=== PATIENT | male | born 1965 | race Caucasian/White ===

== ENCOUNTER 2019-02-20 13:13 | Emergency (ER) | payer BC, MEDICAID ==
--- NOTE | 2019-02-20 13:34 | ED ---
Abdominal Pain/Male - HPI Summary HPI Summary: A 53 y/o M presents to ED with c/o intermittent abd pain described as cramping onset two days ago. Associated sx: subjective fever, nausea. Denies vomiting, bloody stools. Alleviating factors: BM. He has not been on ABX recently. He was in [place] for 6 days and returned to [place] three days ago. He was staying in an [place]clusive [place] and went on excursions; his is not ill. Denies PMHx, Surgeries: Hernia repair. Non-smoker. No drugs. ETOH occ. Recently, patient has been eating roasted chicken from [employer], which no one else has eaten. 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 Negative: Blood in Stool, Vomiting - Allergies/Home Medications Allergies/Adverse Reactions: Allergies Allergy/AdvReac Type Severity Reaction Status Date / Time No Known Allergies Allergy Verified 02/20/19 13:24 PMH/Surg Hx/FS Hx/Imm Hx Previously Healthy: Yes Sensory History: Denies: Hx Legally Blind, Hx Deafness Opthamlomology History: Denies: Hx Legally Blind EENT History: Denies: Hx Deafness Neurological History: Denies: Hx Dementia Infectious Disease History: No Infectious Disease History: Reports: Traveled Outside the [place] in Last 30 Days - Social History Occupation: Works From/At Home - SELF-[employer] Lives: With Family Hx Substance Use: No Hx Tobacco Use: No Review of Systems Positive: Fever - subjective Positive: Abdominal Pain - cramping, Diarrhea, Nausea. Negative: Vomiting, Other - neg: bloody stools All Other Systems Reviewed And Are Negative: Yes Physical Exam - Summary Physical Exam Summary: VITAL SIGNS: Reviewed. GENERAL: Patient is a well-developed and nourished male who is lying comfortable in the stretcher. Patient is not in any acute respiratory distress. HEAD AND FACE: Normocephalic and atraumatic. EYES: PERRLA, EOMI x 2, No injected conjunctiva. EARS: Hearing grossly intact. Ear canals and tympanic membranes are WNL. MOUTH: Oropharynx within normal limits. NECK: Supple, trachea is midline, no adenopathy, no JVD. CHEST: Symmetric, no tenderness at palpation LUNGS: Clear to auscultation bilaterally. No wheezing or crackles. CVS: RRR, S1 and S2 present, no murmurs or gallops appreciated. ABDOMEN: Soft, non-tender. No signs of distention. Increased bowel sounds. No rebound, no guarding, and no masses palpated. No abdominal bruit or pulsations. EXTREMITIES: FROM in all major joints, no edema, no cyanosis or clubbing. NEURO: Alert and oriented x 3. No acute neurological deficits. Speech is normal. SKIN: Dry and warm Triage Information Reviewed: Yes Vital Signs On Initial Exam: Initial Vitals Temp Pulse Resp BP Pulse Ox 99.1 F 119 20 147/100 95 02/20/19 13:15 02/20/19 13:15 02/20/19 13:15 02/20/19 13:15 02/20/19 13:15 Vital Signs Reviewed: Yes Diagnostics - Vital Signs Vital Signs Temp Pulse Resp BP Pulse Ox 02/20/19 13:15 99.1 F 119 20 147/100 95 - Laboratory Result Diagrams: 02/20/19 14:12 02/20/19 14:12 Lab Statement: Any lab studies that have been ordered have been reviewed, and results considered in the medical decision making process. - Radiology ABD XR Radiology Interpretation Completed By: Radiologist Summary of Radiographic Findings: IMPRESSION: Nonobstructive bowel gas pattern. ED provider has reviewed this report. - EKG 1401 Cardiac Rate: Tachycardia - 106 bpm EKG Rhythm: Sinus Tachycardia EKG Comparison: Other - No prior EKG for comparison. Summary of EKG Findings: No ST elevation. Re-Evaluation - Re-Evaluation 1 Re-Evaluation Time: 16:37 Change: Improved Comment: Discussing results with pt and plans to D/C. Patient is feeling better. Abdominal Pain Male Course/Dx - Course Assessment/Plan: This patient is a 53-year-old male who presents to the emergency department with a chief complaint of epigastric cramping and diarrhea for the last couple days. Patient reports that he has been eating chicken from the store and also he was in [place] about a week ago. He developed the symptoms started after he came back from [place]. Denies any fever and denies any chills. Test results without any significant abnormality except for sodium 134, greater than 100, glucose 105, CRP is 150 and lipase is less than 10. Positive fecal leukocytes. Occult blood is negative. C diff is negative. X ray. In the ED course the patient was given IV fluids, Zofran for nausea and vomiting. Since the patient has a positive leukocytes Ill give the patient Bactrim since I believe the patient has a travelers diarrhea. After these medications the patients symptoms have significantly improved. The. Patient will be discharged home with follow-up with primary care physician. Patient is hemolyticus stable alert and oriented 3. - Diagnoses Provider Diagnoses: Nausea vomiting and diarrhea, Traveler's diarrhea Discharge - Sign-Out/Discharge Documenting (check all that apply): Patient Departure - D/C Patient Received Moderate/Deep Sedation with Procedure: No - Discharge Plan Condition: Stable Disposition: HOME Prescriptions: Ondansetron ODT TAB* [Zofran 4 MG Odt TAB*] 4 mg PO Q6H PRN #10 tab.odt PRN Reason: Nausea Sulfamethox/Trimethoprim DS* [Bactrim DS 800/160 TAB*] 1 tab PO BID #14 tab Patient Education Materials: Sulfamethoxazole/Trimethoprim (By mouth), Ondansetron (By mouth), Acute Nausea and Vomiting (ED) Referrals: [facility] [Outside] - 3 Days Additional Instructions: FOLLOW UP WITH YOUR PRIMARY CARE PROVIDER WITHIN 3 DAYS. RETURN TO THE ED FOR ANY WORSENING OR NEW SYMPTOMS. - Billing Disposition and Condition Condition: STABLE Disposition: Home - Attestation Statements Document Initiated by [email or web address]: Yes Documenting Scribe: Nessa Noel Provider For Whom Manny is Documenting (Include Credential): Dr. Jay Adan MD Scribe Attestation: Nessa Goodwin scribed for Dr. Jay Adan MD on 02/20/19 at 1839. Scribe Documentation Reviewed: Yes Provider Attestation: The documentation as recorded by the Nessa hager accurately reflects the service I personally performed and the decisions made by , Dr. Jay Adan MD Status of Scribe Document: Viewed
[2019-02-20] MEDS ORDERED: Ondansetron INJ* 2 MG/ML VIAL IV ONE (13:47)
[2019-02-20 14:28] LABS: ABS Lymphocytes 1.3 10^3/ul (1.0-4.8); ABS Monocytes 0.8 10^3/ul (0-0.8); ABS Neutrophils 8.3 10^3/ul (1.5-7.7); Hematocrit 44 % (42-52); Hemoglobin 15.1 g/dL (14.0-18.0); Lymphocyte % 12.5 %; Mean Corpuscular HGB Conc 34 g/dL (31-36); Mean Corpuscular Hemoglobin 30 pg (27-31); Mean Corpuscular Volume 89 fL (80-94); Nucleated Red Blood Cells % 0.1; Platelet Count 232 10^3/uL (150-450); Red Blood Count 4.97 10^6 /uL (4.18-5.48); Red Cell Distribution Width 13 % (10.5-15); White Blood Count 10.4 10^3/uL (3.5-10.8)
[2019-02-20 14:45] LABS: ALT 40 U/L (7-52); AST 28 U/L (13-39); Albumin 4.2 g/dL (3.2-5.2); Albumin/Globulin Ratio 1.3 (1-3); Alkaline Phosphatase 68 U/L (34-104); Anion Gap 9 mmol/L (2-11); Blood Urea Nitrogen 16 mg/dL (6-24); C Reactive Protein 150.33 mg/L (<8.01); CO2 Carbon Dioxide 25 mmol/L (22-32); Chloride 100 mmol/L (101-111); Creatine Kinase 76 U/L (10-223); EGFR Non-African American 90.1 (>60); Globulin 3.2 g/dL (2-4); Glucose 105 mg/dL (70-100); Potassium 3.6 mmol/L (3.5-5.0); Sodium 134 mmol/L (135-145); Total Protein 7.4 g/dL (6.4-8.9)
[2019-02-20] MEDS: NS 0.9% 1000 ML** 2,000 ML IV ONE (14:49)
[2019-02-20] MEDS ORDERED: Sulfamethox/Trimethoprim DS 800/160* TAB PO ONE (16:34)
[2019-02-20] MEDS ORDERED: Acetaminophen TAB* 325 MG PO ONE (16:41)
[2019-02-20 17:46] VITALS: BP 159/97
--- NOTE | 2019-02-22 14:00 | PN ---
Progress Note - Progress Note Date of Service: 02/20/19 Note: Stool culture positive for campylobacter coli. Called and discussed results with pt. and today at 1400. Pt. still having episodes of diarrhea without blood. Advised to continue supportive care. Will f.u with his PCP.
== END 2019-02-20 17:15 | disposition home or self-care (01) ==
LOC: EDBD → ED 13:13
DX: R11.2 Nausea with vomiting, unspecified (principal); R19.7 Diarrhea, unspecified; R94.31 Abnormal electrocardiogram [ECG] [EKG]
CPT/HCPCS: 36415; 74019; 80053; 82272; 82550; 83605; 83630; 83690; 85025; 86140; 87040; 87045; 87046; 87077; 87493; 87899; 93005; 96361; 96374; 99283; A9270-GY; J2405